=== PATIENT | female | born 1950 | race Native Hawaiian/Other Pacific Islander ===

== ENCOUNTER 2019-05-03 19:29 | Outpatient (CLI) | payer OTHER ==
[~2019-05-03 19:29] MED LIST: ALBUTEROL0.083 % IN; ALEVE220 MG PO; AMLO2.5T PO; BREO ELLIPTA 101 INH IN; METO25TA4 PO
[2019-05-03] MEDS ORDERED: ASPIRIN 81 LOW81 MG PO ×2 (20:00→20:01)
== END 2019-05-03 19:37 | disposition short-term general hospital (02) ==
LOC: AMB 19:29
DX: S81.812A Laceration without foreign body, left lower leg, initial encounter (principal); S61.511A Laceration without foreign body of right wrist, initial encounter; Y04.0XXA Assault by unarmed brawl or fight, initial encounter; Y92.018 Other place in single-family (private) house as the place of occurrence of the external cause
CPT/HCPCS: A0425; A0429

== ENCOUNTER 2019-05-03 19:45 | Emergency (ER) | payer OTHER ==
[~2019-05-03] VITALS: Ht 149.9 cm; Wt 65.8 kg
[2019-05-03] MEDS ORDERED: ASPIRIN 81 LOW81 MG PO ×2 (20:00→20:01)
[2019-05-03 21:06] LABS: PLATELET COUNT 235 K/uL (152-353)
[2019-05-03 21:13] LABS: POTASSIUM 3.7 mmol/L (3.6-5.2)
[2019-05-03 22:20] VITALS: BP 133/79; TEMP 98.1
== END 2019-05-03 22:20 | disposition short-term general hospital (02) ==
LOC: ED 19:45
PROVIDERS: Student in an Organized Health Care Education/Training Program
DX: S81.812A Laceration without foreign body, left lower leg, initial encounter (principal); Y08.89XA Assault by other specified means, initial encounter; Y93.89 Activity, other specified; Y92.89 Other specified places as the place of occurrence of the external cause
CPT/HCPCS: 80048; 85027; 96365; 96375; 99284; J0690; J2270; J2405; J7040

== ENCOUNTER 2019-05-03 22:10 | Outpatient (CLI) | payer OTHER ==
[~2019-05-03 22:10] MED LIST changes: +ASPIRIN 81 LOW81 MG PO
== END 2019-05-03 23:27 | disposition short-term general hospital (02) ==
LOC: AMB 22:10
DX: S81.812A Laceration without foreign body, left lower leg, initial encounter (principal); S41.112A Laceration without foreign body of left upper arm, initial encounter
CPT/HCPCS: A0425; A0429

== ENCOUNTER 2021-02-12 09:23 | Outpatient (CLI) | payer OTHER ==
[2021-02-12 10:02] LABS: POTASSIUM 3.7 mmol/L (3.6-5.2)
== END 2021-02-12 21:45 | disposition home or self-care (01) ==
LOC: RAD 09:23
PROVIDERS: ATTEND Nurse Practitioner Family
DX: Z03.89 Encounter for observation for other suspected diseases and conditions ruled out (principal)
CPT/HCPCS: 36415; 80053; 82150; 83690; 86318

== ENCOUNTER 2021-02-15 14:18 | Emergency (ER) | payer OTHER ==
[~2021-02-15] VITALS: Ht 149.9 cm; Wt 56.2 kg
[2021-02-15 22:11] LABS: PLATELET COUNT 146 K/uL (152-353)
[2021-02-15 22:25] LABS: POTASSIUM 3.6 mmol/L (3.6-5.2); SODIUM 142 mmol/L (136-145)
[2021-02-15 23:06] LABS: PARTIAL THROMBOPLASTIN TIME 28.3 SECONDS (24.5-33.6)
[2021-02-15 23:59] VITALS: BP 143/68; TEMP 98.2
== END 2021-02-15 23:59 | disposition home or self-care (01) ==
LOC: ED 14:18
PROVIDERS: Hospitalist
DX: K21.9 Gastro-esophageal reflux disease without esophagitis (principal); Z79.82 Long term (current) use of aspirin; Z51.81 Encounter for therapeutic drug level monitoring
CPT/HCPCS: 36415; 80053; 82550; 83690; 83880; 84484; 85027; 85610; 85730; 93005; 99283

== ENCOUNTER 2022-05-02 13:03 | Observation (INO) | payer OTHER ==
[~2022-05-02] VITALS: Ht 149.9 cm; Wt 51.4 kg
[2022-05-02 13:03] VITALS: BP 138/75; TEMP 98
[2022-05-02 13:29] LABS: PLATELET COUNT 273 K/uL (152-353)
[2022-05-02 13:36] LABS: POTASSIUM 3.5 mmol/L (3.6-5.2)
[2022-05-02 13:47] LABS: PARTIAL THROMBOPLASTIN TIME 26.7 SECONDS (24.5-33.6)
[2022-05-02 18:22] VITALS: BP 148/73; TEMP 98.1; Ht 149.9 cm; Wt 51.4 kg
[2022-05-02] MEDS ORDERED: MULTIVITAMI1 PO (18:41)
[2022-05-02] MEDS ORDERED: ASPIRIN 81 LOW81 MG PO (18:41)
[2022-05-02] MEDS ORDERED: AMLODIPINE (18:42)
[2022-05-02] MEDS ORDERED: METOPROLOL (18:43)
[2022-05-02 19:32] VITALS: BP 143/83; TEMP 98.5
[2022-05-03] VITALS: BP 138/70; TEMP 98.5
[2022-05-03 04:00] VITALS: BP 136/74; TEMP 98.5
[2022-05-03 04:05] LABS: PLATELET COUNT 216 K/uL (152-353)
[2022-05-03 04:22] LABS: POTASSIUM 3.4 mmol/L (3.6-5.2)
[2022-05-03] MEDS ORDERED: NICODERM CQ 21MG/HR TD (07:45)
[2022-05-03] MEDS ORDERED: ULTRAM 50MG TAB PO (07:45)
[2022-05-03 07:47] VITALS: BP 131/68; TEMP 98.7
== END 2022-05-03 11:05 | disposition home or self-care (01) ==
LOC: ED 13:03 → MED/SURG 15:45
PROVIDERS: Emergency Medicine; ADMIT Internal Medicine; ATTEND Internal Medicine
PROC: 0HQ1XZZ Repair Face Skin, External Approach (ICD-10-PCS; principal; 2022-05-02)
DX: S02.642A Fracture of ramus of left mandible, initial encounter for closed fracture (principal); R55 Syncope and collapse; I10 Essential (primary) hypertension; K59.09 Other constipation; W01.198A Fall on same level from slipping, tripping and stumbling with subsequent striking against other object, initial encounter; Y92.89 Other specified places as the place of occurrence of the external cause; S01.81XA Laceration without foreign body of other part of head, initial encounter
CPT/HCPCS: 36415; 80053; 81002; 82550; 84439; 84443; 84484; 85027; 85379; 85610; 85730; 90472; 90715; 93005; 96360; 96361; 99220; 99284; G0378; J7040; Q9963

== ENCOUNTER 2022-05-19 15:47 | Outpatient (CLI) | payer OTHER ==
[~2022-05-19 15:47] MED LIST changes: +AMLODIPINE; +METOPROLOL; +MULTIVITAMI1 PO; +NICODERM CQ 21MG/HR TD; +ULTRAM 50MG TAB PO
== END 2022-05-19 20:11 | disposition home or self-care (01) ==
LOC: US 15:47
PROVIDERS: ATTEND Nurse Practitioner Family
DX: R22.1 Localized swelling, mass and lump, neck (principal)

== ENCOUNTER 2022-05-20 16:42 | Emergency (ER) | payer OTHER ==
[~2022-05-20] VITALS: Ht 149.9 cm; Wt 50.3 kg
[2022-05-20 16:47] VITALS: TEMP 98.7
[2022-05-20 18:00] VITALS: BP 180/87
== END 2022-05-20 18:25 | disposition home or self-care (01) ==
LOC: ED 16:42
DX: I10 Essential (primary) hypertension (principal); F17.210 Nicotine dependence, cigarettes, uncomplicated
CPT/HCPCS: 99282

== ENCOUNTER 2022-05-21 10:46 | Outpatient (CLI) | payer OTHER | END 2022-05-21 19:38 | disposition home or self-care (01) | LOC: RESP 10:46 | PROVIDERS: ATTEND Nurse Practitioner Family | DX: I10 Essential (primary) hypertension (principal) ==

== ENCOUNTER 2022-05-22 08:43 | Outpatient (CLI) | payer OTHER ==
[~2022-05-22] VITALS: Ht 149.9 cm; Wt 50.3 kg
== END 2022-05-22 19:00 | disposition home or self-care (01) ==
LOC: NM 08:43
PROVIDERS: ATTEND Nurse Practitioner Family
DX: I10 Essential (primary) hypertension (principal); Z79.899 Other long term (current) drug therapy
CPT/HCPCS: A9500; J2785

== ENCOUNTER 2022-05-22 22:04 | Emergency (ER) | payer OTHER ==
[~2022-05-22] VITALS: Ht 149.9 cm; Wt 49.0 kg
[2022-05-22 23:55] VITALS: BP 176/77; TEMP 98.7
== END 2022-05-22 23:55 | disposition home or self-care (01) ==
LOC: ED 22:04
DX: I10 Essential (primary) hypertension (principal); F17.210 Nicotine dependence, cigarettes, uncomplicated
CPT/HCPCS: 99282

== ENCOUNTER → 2022-05-28 | Outpatient (CLI) | payer OTHER | LOC: MRI 05-23 09:00 → US 05-23 09:00 → MRI 05-23 10:00 → US 09:30 | PROVIDERS: ATTEND Nurse Practitioner Family | DX: R55 Syncope and collapse (principal); I10 Essential (primary) hypertension ==

== ENCOUNTER 2022-07-02 14:43 | Outpatient (CLI) | payer OTHER ==
[2022-07-02 15:06] LABS: POTASSIUM 3.7 mmol/L (3.6-5.2)
== END 2022-07-02 19:36 | disposition home or self-care (01) ==
LOC: LABW 14:43
PROVIDERS: ATTEND Internal Medicine Cardiovascular Disease
DX: Z79.899 Other long term (current) drug therapy (principal)
CPT/HCPCS: 36415; 80048

== ENCOUNTER 2022-07-21 15:02 | Outpatient (CLI) | payer OTHER ==
[2022-07-21 15:24] LABS: PLATELET COUNT 309 K/uL (152-353)
[2022-07-21 15:36] LABS: POTASSIUM 3.8 mmol/L (3.6-5.2)
== END 2022-07-21 19:07 | disposition home or self-care (01) ==
LOC: LABW 15:02
PROVIDERS: ATTEND Nurse Practitioner Family
DX: R05.9 Cough, unspecified (principal); R07.81 Pleurodynia
CPT/HCPCS: 36415; 80053; 85027

== ENCOUNTER 2022-07-31 08:08 | Emergency (ER) | payer OTHER ==
[~2022-07-31] VITALS: Ht 149.9 cm; Wt 48.5 kg
[2022-07-31 08:10] VITALS: TEMP 98
[2022-07-31 08:49] LABS: PLATELET COUNT 271 K/uL (152-353)
[2022-07-31 08:57] LABS: POTASSIUM 3.6 mmol/L (3.6-5.2)
[2022-07-31 12:26] VITALS: BP 154/81
== END 2022-07-31 12:26 | disposition home or self-care (01) ==
LOC: ED 08:08
PROVIDERS: Emergency Medicine
DX: R51.9 Headache, unspecified (principal); I10 Essential (primary) hypertension
CPT/HCPCS: 80053; 83880; 84484; 85027; 93005; 96374; 99284; J0360; J1940

== ENCOUNTER 2022-07-31 12:36 | Outpatient (CLI) | payer OTHER | END 2022-07-31 20:43 | disposition home or self-care (01) | LOC: MRI 12:36 | PROVIDERS: ATTEND Nurse Practitioner Family | DX: R41.3 Other amnesia (principal); Z13.820 Encounter for screening for osteoporosis; N95.8 Other specified menopausal and perimenopausal disorders ==

== ENCOUNTER 2022-11-11 11:33 | Emergency (ER) | payer OTHER ==
[~2022-11-11] VITALS: Ht 149.9 cm; Wt 53.1 kg
[2022-11-11 11:49] LABS: PLATELET COUNT 274 K/uL (152-353)
[2022-11-11 11:58] LABS: POTASSIUM 3.8 mmol/L (3.6-5.2)
[2022-11-11 13:45] VITALS: BP 124/81; TEMP 97.5
== END 2022-11-11 13:45 | disposition home or self-care (01) ==
LOC: ED 11:33
PROVIDERS: Emergency Medicine
DX: E87.1 Hypo-osmolality and hyponatremia (principal); E86.0 Dehydration; F17.210 Nicotine dependence, cigarettes, uncomplicated
CPT/HCPCS: 80053; 81002; 83880; 84484; 85027; 93005; 96360; 99284

== ENCOUNTER 2023-01-15 10:55 | Observation (INO) | payer OTHER ==
[~2023-01-15] VITALS: Ht 157.5 cm; Wt 48.6 kg
[2023-01-15] VITALS (13 sets, daily range): BP systolic 120–157; BP diastolic 53–85; TEMP 97.8–98.2; Ht 157.5 cm; Wt 48.6 kg
[~2023-01-15 10:55] MED LIST changes: +BENICAR20 MG PO; +BUSPIRONE5 MG PO; +HYDR25TA60 PO; +SPIRONOLACT25 MG PO
[2023-01-15 11:30] LABS: PLATELET COUNT 276 K/uL (152-353)
[2023-01-15 11:34] LABS: POTASSIUM 3.8 mmol/L (3.6-5.2)
[2023-01-15 11:39] LABS: PARTIAL THROMBOPLASTIN TIME 23.9 SECONDS (23.9-36.7)
[2023-01-16] VITALS: BP 103/66; TEMP 98.9
[2023-01-16 03:49] VITALS: BP 111/61; TEMP 98.7
[2023-01-16 08:02] VITALS: BP 115/59; TEMP 98.6
[2023-01-16] MEDS ORDERED: BENICAR20 MG PO (08:58)
[2023-01-16] MEDS ORDERED: SPIRONOLACT25 MG PO (08:59)
[2023-01-16 12:00] VITALS: BP 163/86; TEMP 98.2
[2023-01-16 16:00] VITALS: BP 130/79; TEMP 98.5
== END 2023-01-16 11:09 | disposition home or self-care (01) ==
LOC: ED 10:55 → MED/SURG 19:00
PROVIDERS: Family Medicine; ADMIT Nurse Practitioner; ATTEND Internal Medicine
DX: R41.82 Altered mental status, unspecified (principal); E87.1 Hypo-osmolality and hyponatremia; I10 Essential (primary) hypertension; F17.210 Nicotine dependence, cigarettes, uncomplicated; J43.8 Other emphysema; F41.8 Other specified anxiety disorders; R56.9 Unspecified convulsions; R55 Syncope and collapse
CPT/HCPCS: 80053; 80307; 81002; 82550; 82607; 83605; 83735; 84443; 84484; 85027; 85610; 85730; 86140; 93005; 96360; 96361; 99221; 99284; G0378